=== PATIENT | female | born 1995 | race Caucasian/White ===

== ENCOUNTER 2020-10-13 08:39 | Emergency (ER) | payer OTHER ==
[~2020-10-13] VITALS: Ht 149.9 cm; Wt 75.5 kg
[2020-10-13 09:17] LABS: GLUCOSE, URINE (UA) NEGATIVE (NEGATIVE); KETONES,URINE 15 mg/dL (NEGATIVE); LEUKOCYTE ESTERASE ,URINE LARGE (NEGATIVE); NITRATE,URINE POSITIVE (NEGATIVE); OCCULT BLOOD,URINE LARGE (NEGATIVE); PROTEIN,URINE SEE CONFIRM (NEGATIVE)
[2020-10-13 09:19] LABS: APPEARANCE,URINE CLOUDY (CLEAR); BILIRUBIN,URINE PRELIM. POSITIVE (NEGATIVE)
[2020-10-13 09:20] LABS: SULFOSALICYLIC ACID,URINE 2+ (Negative)
[2020-10-13 09:21] LABS: BACTERIA,URINE Few /HPF (None Seen); RBC,URINE >100 /HPF (0-2); SQUAMOUS EPITHELIAL CELL,UR Few /LPF (None Seen); WBC,URINE 26-50 /HPF (0-5)
[2020-10-13 09:34] VITALS: BP 126/76
[2020-10-13] MEDS ORDERED: CEPHALEXIN MONOHYDRATE 500 MG CAPSULE PO ONE (09:45)
== END 2020-10-13 09:45 | disposition home or self-care (01) ==
LOC: EMS 08:45
DX: N39.0 Urinary tract infection, site not specified (principal)
CPT/HCPCS: 81001; 81002; 84703; 87077; 87086; 87186; 99283

== ENCOUNTER 2020-12-17 05:36 | Day surgery (SDC) | payer OTHER ==
[~2020-12-17] VITALS: Ht 149.9 cm; Wt 69.1 kg
[2020-12-17] MEDS ORDERED: RINGERS SOLUTION,LACTATED 1,000 ML IV ONE ×2 (05:50→06:30)
[2020-12-17 06:12] LABS: COVID AG,FIA SOURCE NASOPHARYNGEAL
[2020-12-17 06:17] LABS: BASOPHILS % (AUTO) 0.6 % (0.0-2.0); EOSINOPHILS % (AUTO) 5.6 % (1.0-6.0); HEMATOCRIT 40.5 % (36-46); HEMOGLOBIN 13.5 g/dL (12.0-16.0); LYMPHOCYTES # (AUTO) 2.5 K/uL (1.0-4.8); LYMPHOCYTES % (AUTO) 26.6 % (22.0-44.0); MEAN CORPUSCULAR HEMOGLOBIN 28.8 pg (26.0-34.0); MEAN CORPUSCULAR HGB CONC 33.3 G/dL (31.0-37.0); MEAN CORPUSCULAR VOLUME 87 fL (80-100); MONOCYTES # (AUTO) 0.6 K/uL (0.1-1.0); MONOCYTES % (AUTO) 5.9 % (2.0-9.0); NEUTROPHILS # (AUTO) 5.8 K/uL (1.8-7.7); NEUTROPHILS % (AUTO) 61.3 % (40.0-70.0); PLATELET COUNT (AUTO) 284 K/uL (150-450); RED BLOOD CELL COUNT(AUTO) 4.68 MIL/uL (4.00-5.20); RED CELL DISTRIBUTION WIDTH 14.2 % (11.5-14.5)
[2020-12-17 06:29] LABS: ANION GAP 12 mmol/L (8-16); CALCIUM, TOTAL 8.9 mg/dL (8.8-10.5); CARBON DIOXIDE 25 mmol/L (22-29); CHLORIDE 101 mmol/L (98-107); CREATININE 0.42 mg/dL (0.60-1.30); GLOMERULAR FILTR. RATE CALC > 60 mL/min (>60); GLUCOSE,RANDOM 95 mg/dL (70-110); POTASSIUM 3.4 mmol/L (3.5-5.1); SODIUM SERUM 138 mmol/L (136-145); UREA NITROGEN, BLOOD 4 mg/dL (7-18)
[2020-12-17] MEDS ORDERED: WATER IV ONE (06:30)
[2020-12-17] MEDS ORDERED: DOXYCYCLINE HYCLATE IV ONE (06:30)
[2020-12-17] MEDS ORDERED: DEXTROSE 5% IV ONE (06:30)
[2020-12-17 06:33] LABS: PROTHROMBIN TIME 10.9 SEC (9.4-11.6)
[2020-12-17] MEDS ORDERED: MISOPROSTOL 100 MCG TABLET ONE (06:59)
[2020-12-17] MEDS ORDERED: METHYLERGONOVINE MALEATE 0.2 MG/ML VIAL ONE (07:00)
[2020-12-17] MEDS ORDERED: ACETAMINOPHEN 1000 MG/ISO-OSM 100 ML IV ONE (07:27)
[2020-12-17] MEDS ORDERED: FentaNYL CITRATE PF 100 MCG/2 ML VIAL IVP PRN (08:15)
[2020-12-17] MEDS ORDERED: MEPERIDINE-PF 25 MG/ML VIAL IVP PRN (08:15)
[2020-12-17] MEDS ORDERED: HYDROmorphone 2 MG/ML VIAL IVP PRN (08:15)
[2020-12-17] MEDS ORDERED: SUCCINYLCHOLINE CHLORIDE 20 MG/ML 10 ML VIAL IVP ONE (12:00)
[2020-12-17] MEDS ORDERED: MIDAZOLAM HCL 2 MG/2 ML VIAL IVP ONE (12:00)
[2020-12-17] MEDS ORDERED: FentaNYL CITRATE PF 100 MCG/2 ML VIAL IVP ONE (12:00)
[2020-12-17] MEDS ORDERED: DEXAMETHASONE SOD PHOS 4 MG/ML VIAL IVP ONE (12:00)
[2020-12-17] MEDS ORDERED: PROPOFOL 1% 20 ML VIAL IVP ONE (12:00)
[2020-12-17] MEDS ORDERED: KETOROLAC TROMETHAMINE 60 MG/2 ML VIAL IM ONE (12:00)
[2020-12-17] MEDS ORDERED: LIDOCAINE/PF 2% 5 ML VIAL IM ONE (12:00)
[2020-12-17] MEDS ORDERED: ONDANSETRON HCL 4 MG/2 ML VIAL IVP ONE (12:00)
[2020-12-17] MEDS ORDERED: OXYGEN THERAPY IH SCH (20:00)
== END 2020-12-17 09:25 | disposition home or self-care (01) ==
LOC: SURGERY 05:36
PROVIDERS: ATTEND Student in an Organized Health Care Education/Training Program
DX: O02.1 Missed abortion (principal); N85.4 Malposition of uterus; Z79.899 Other long term (current) drug therapy
CPT/HCPCS: 36415; 59820; 80048; 84703; 85025; 85610; 85730; 86850; 86900; 86901; 87426; 88305; C9803; J0131; J0330; J1100; J1885; J2250; J2405; J2704; J3010; J3490 ×2; J7060; J7120; J2210

== ENCOUNTER 2023-04-19 15:36 | Emergency (ER) | payer OTHER ==
[~2023-04-19] VITALS: Ht 152.4 cm; Wt 76.4 kg
[2023-04-19 15:40] VITALS: TEMP 98.5
[2023-04-19 17:34] VITALS: BP 111/62; PULSE 77; RESP 16
== END 2023-04-19 17:36 | disposition home or self-care (01) ==
LOC: EMS 15:36
DX: H61.21 Impacted cerumen, right ear (principal)
CPT/HCPCS: 69209; 99282; 99283

== ENCOUNTER 2023-07-16 08:52 | Emergency (ER) | payer OTHER ==
[~2023-07-16] VITALS: Ht 149.9 cm; Wt 77.3 kg
[2023-07-16 08:59] VITALS: BP 125/84; PULSE 90; RESP 18; TEMP 98.2
[2023-07-16] MEDS ORDERED: IBUP-1492 PO (09:09)
[2023-07-16] MEDS ORDERED: AMOX500C2 PO (09:09)
== END 2023-07-16 09:20 | disposition home or self-care (01) ==
LOC: EMS 08:57
DX: H66.91 Otitis media, unspecified, right ear (principal)
CPT/HCPCS: 99283

== ENCOUNTER 2023-07-25 14:42 | Emergency (ER) | payer OTHER ==
[~2023-07-25] VITALS: Ht 147.3 cm; Wt 72.7 kg
[~2023-07-25 14:42] MED LIST: AMOX500C2 PO; IBUP-1492 PO
[2023-07-25 14:47] VITALS: BP 108/46; PULSE 95; RESP 18; TEMP 98
[2023-07-25] MEDS ORDERED: AZIT250T9 PO (17:39)
== END 2023-07-25 18:00 | disposition home or self-care (01) ==
LOC: EMS 14:42
DX: H73.013 Bullous myringitis, bilateral (principal)
CPT/HCPCS: 99283